=== PATIENT | male | born 1970 | race Hispanic/Latino ===

== ENCOUNTER 2022-11-19 06:40 | Emergency (ER) | payer SELFPAY ==
[2022-11-19] MEDS ORDERED: Tetracaine 0.5% PF 4 ML BOT ONE (06:49)
[2022-11-19] MEDS ORDERED: Fluorescein Opthalmic Strip ONE (06:49)
[2022-11-19] MEDS ORDERED: Gentamicin Ophth Soln 0.3% 5 ml Bottle ONE (07:13)
== END 2022-11-19 07:35 | disposition home or self-care (01) ==
LOC: NAV ERS 06:40
DX: T15.01XA Foreign body in cornea, right eye, initial encounter (principal); F17.210 Nicotine dependence, cigarettes, uncomplicated; W45.8XXA Other foreign body or object entering through skin, initial encounter
CPT/HCPCS: 99283